=== PATIENT | female | born 1975 | race Caucasian/White ===

== ENCOUNTER → 2021-09-15 | Outpatient (CLI) | payer OTHER ==
[~2021-09-15] MED LIST: OMEPRAZOLE40 MG PO
== END ==
LOC: MRI 15:07
PROVIDERS: ATTEND Physician Assistant
DX: M23.92 Unspecified internal derangement of left knee (principal)

== ENCOUNTER 2022-03-03 17:35 | Emergency (ER) | payer OTHER ==
[~2022-03-03] VITALS: Ht 157.5 cm; Wt 100.5 kg
[2022-03-03] MEDS ORDERED: ONDANSETRON HCL INJ 2MG/ML 2ML 2 MG/ML VIAL IV STA (17:54)
[2022-03-03] MEDS ORDERED: KETOROLAC TROMETHAMINE 30 MG/ML VIAL IV STA (17:54)
[2022-03-03] MEDS ORDERED: SODIUM CHLORIDE 0.9% 1000ML 1,000 ML IV SCH (18:00)
[2022-03-03] MEDS ORDERED: KETOROLAC TROMETHAMINE 30 MG/ML VIAL ONE (18:07)
[2022-03-03] MEDS ORDERED: SODIUM CHLORIDE 0.9% 1000ML 1,000 ML ONE (18:07)
[2022-03-03] MEDS ORDERED: ONDANSETRON HCL INJ 2MG/ML 2ML 2 MG/ML VIAL ONE (18:07)
[2022-03-03] MEDS ORDERED: ATORVASTATIN CA20 MG PO (18:10)
[2022-03-03] MEDS ORDERED: CEFDINIR300 MG PO (19:00)
[2022-03-03] MEDS ORDERED: KETOROLAC TROME10 MG PO (19:00)
[2022-03-03] MEDS ORDERED: ONDANSETRON ODT4 MG PO (19:00)
[2022-03-03 19:13] VITALS: BP 126/68
== END 2022-03-03 19:13 | disposition home or self-care (01) ==
LOC: FSED 17:42
DX: R10.32 Left lower quadrant pain (principal); N20.0 Calculus of kidney; R31.9 Hematuria, unspecified; E78.5 Hyperlipidemia, unspecified; K21.9 Gastro-esophageal reflux disease without esophagitis
CPT/HCPCS: 74176; 80053; 81003; 85025; 96374; 96375; 99284; J1885; J2405; J7030